=== PATIENT | male | born 1995 | race Caucasian/White ===

== ENCOUNTER 2016-05-17 14:40 | Observation (INO) | payer OTHER ==
[2016-05-17] MEDS ORDERED: NS 0.9% 1000 ML* 1,000 ML IV ONE (14:50)
[2016-05-17] MEDS ORDERED: Ondansetron INJ* 2 MG/ML VIAL ONE (15:06)
[2016-05-17] MEDS ORDERED: Ondansetron INJ* 2 MG/ML VIAL IV ONE ×2 (15:10→15:14)
--- NOTE | 2016-05-17 15:17 | ED ---
Abdominal Pain/Male - HPI Summary HPI Summary: Patient presents for 2 day evaluation of R lower abdominal pain with associated nausea. PMH sig for malrotation, appendectomy, bilateral inguinal herniorraphy. Denies systemic symptoms, trauma, penile or testicular pain. - History of Current Complaint Chief Complaint: EDAbdPain Stated Complaint: RLQ ABD PAIN Time Seen by Provider: 05/17/16 14:41 Hx Obtained From: Patient Onset/Duration: Gradual Onset Timing: Lasting Days Pain Intensity: 6 - Allergies/Home Medications Allergies/Adverse Reactions: Allergies Allergy/AdvReac Type Severity Reaction Status Date / Time No Known Allergies Allergy Verified 02/17/16 13:05 PMH/Surg Hx/FS Hx/Imm Hx Previously Healthy: Yes Endocrine/Hematology History: Denies: Hx Diabetes Cardiovascular History: Denies: Hx Hypertension, Hx Pacemaker/ICD History: Denies: Hx Renal Disease Sensory History: Denies: Hx Hearing Aid Psychiatric History: Denies: Hx Panic Disorder - Surgical History Surgery Procedure, Year, and Place: 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 Negative: Diarrhea Genitourinary: Negative Negative: no symptoms reported, burning, dysuria All Other Systems Reviewed And Are Negative: Yes Physical Exam Triage Information Reviewed: Yes Vital Signs On Initial Exam: Initial Vitals Temp Pulse Resp BP Pulse Ox 98.8 F 100 16 153/73 100 05/17/16 14:58 05/17/16 14:58 05/17/16 14:58 05/17/16 14:58 05/17/16 14:58 Vital Signs Reviewed: Yes Appearance: Positive: Well-Appearing, No Pain Distress, Well-Nourished Skin: Positive: Warm, Skin Color Reflects Adequate Perfusion, Dry, Other - Well healed bilateral inguinal incisions. ENT: Positive: Normal ENT inspection, Hearing grossly normal, Pharynx normal Neck: Positive: Supple, Nontender, No Lymphadenopathy Respiratory/Lung Sounds: Positive: Clear to Auscultation, Breath Sounds Present Cardiovascular: Positive: Normal, RRR, Pulses are Symmetrical in both Upper and Lower Extremities Abdomen Description: Positive: Nontender, No Organomegaly, Soft Male Genital Exam: Positive: normal genitalia, no hernia. Negative: epididymal tenderness, erythema, hernia mass, lesions, scrotum tenderness (R), scrotum tenderness (L), testicular tenderness (R), testicular tenderness (L), urethral discharge Musculoskeletal: Positive: Normal, Strength/ROM Intact Neurological: Positive: Normal, Sensory/Motor Intact, Alert, Oriented to Person Place, Time, CN Intact II-III, Reflexes Intact, Normal Gait Diagnostics - Vital Signs Vital Signs Temp Pulse Resp BP Pulse Ox 05/17/16 14:58 98.8 F 100 16 153/73 100 - Laboratory Result Diagrams: 05/17/16 15:20 05/17/16 15:20 Lab Statement: Any lab studies that have been ordered have been reviewed, and results considered in the medical decision making process. Abdominal Pain Fem Course/Dx - Diagnoses Differential Diagnosis/HQI/PQRI: Pancreatitis, Urinary Tract Infection, Other - Unclear if this is stump appendicits, epiploic appendigitis, mesenteric adenitis with preceding URi. CT for cause. Provider Diagnoses: Dehydration Discharge - Discharge Plan Condition: Stable Disposition: ADMITTED TO [facility]
[2016-05-17 15:43] LABS: Hematocrit 44 % (42-52); Hemoglobin 14.8 g/dl (14.0-18.0); Mean Corpuscular HGB Conc 34 g/dl (31-36); Mean Corpuscular Hemoglobin 29 pg (27-31); Mean Corpuscular Volume 88 fL (80-94); Mean Platelet Volume 9 um3 (7.4-10.4); Red Blood Count 5.03 10^6/ul (4.0-5.4); Red Cell Distribution Width 13 % (10.5-15); White Blood Count 12.3 10^3/ul (3.5-10.8)
[2016-05-17 16:11] LABS: Albumin 4.2 g/dL (3.2-5.2); BUN/Creatinine Ratio 14.7 (8-20); Calcium 9.2 mg/dL (8.6-10.3); EGFR African American 110.9 (>60); EGFR Non-African American 86.2 (>60); Globulin 2.7 g/dL (2-4); Potassium 4.1 mmol/L (3.5-5.0); Total Bilirubin 0.7 mg/dL (0.2-1.0); Total Protein 6.9 g/dL (6.4-8.9)
[2016-05-17] MEDS ORDERED: Iohexol 300* (CONTRAST) 10 ML SDV IV ONE (16:32)
--- NOTE | 2016-05-17 17:18 | RAD ---
INDICATION: Right lower quadrant pain. History of recurrent pain. History of malrotation. COMPARISON: MRI pelvis February 18, 2016; CT abdomen pelvis February 10, 2015 TECHNIQUE: Axial source images were obtained from the hemidiaphragms to the symphysis pubis following administration of oral and intravenous contrast. 123 mL Omnipaque 300 was utilized. Coronal and sagittal reconstructed images were acquired. Lung bases: The lung bases are clear. Liver: The liver is normal in size. There are no masses. There is no ductal dilatation. Gallbladder: There are no calcified gallstones. There is no evidence of wall thickening or pericholecystic fluid. Spleen: The spleen is normal in size. There are no masses. Pancreas: There is no focal pancreatic mass or ductal dilatation. Adrenal glands: There is no evidence of adrenal mass. Kidneys: The kidneys are normal in size and position. There are prompt nephrograms and there is prompt excretion bilaterally. There are no renal parenchymal masses. There is no evidence of nephrolithiasis. Adenopathy: There is no evidence of adenopathy by size criteria. Fluid collections: There are no free or localized fluid collections. Vessels:There are no significant atherosclerotic changes involving the aorta. There is no focal aneurysm. The iliac vessels are normal in caliber. The IVC appears normal. GI tract: In the anterior lower abdomen and pelvis along the midline are several mildly prominent loops of small bowel. There may be mild mucosal thickening perhaps related to an enteritis. There is no obstruction. There is a known malrotation. The small bowel is predominantly in the right abdomen and the colon is in the left abdomen with the cecum in the region of left mid abdomen. The appendix is not visualized. Pelvic organs: The prostate and seminal vesicles appear normal Bladder: There are no bladder masses. Abdominal and pelvic soft tissues: The extraperitoneal abdominal and pelvic soft tissues appear normal.. Osseous structures: There are no acute osseous findings. Other: None IMPRESSION: BOWEL MALROTATION. APPARENT MILD BOWEL WALL THICKENING OF SEVERAL SMALL BOWEL LOOPS IN THE ANTERIOR LOWER ABDOMEN AND PELVIS MAY BE RELATED TO MILD ENTERITIS. NONVISUALIZATION OF THE APPENDIX.
[2016-05-17] MEDS ORDERED: Ondansetron INJ* 2 MG/ML VIAL IV PRN (20:34)
[2016-05-17] MEDS ORDERED: Acetaminophen TAB* 325 MG PO PRN (20:37)
[2016-05-17] MEDS ORDERED: Acetaminophen TAB* 325 MG ONE (20:57)
[2016-05-17] MEDS: NS 0.9% 1000 ML* 1,000 ML IV SCH (22:30)
[2016-05-17] MEDS: Amoxicillin/Clavulanate TAB* 875 MG PO SCH (22:34)
[2016-05-17] MEDS: Heparin VIAL(*) 5000 UNITS/ML VIAL (FIVE THOUSAND) SUBCUT SCH ×2 (22:36→23:00)
--- NOTE | 2016-05-17 23:12 | HP ---
HISTORY AND PHYSICAL: DATE OF ADMISSION: 05/17/16 PROVIDER: Dr. Samaniego. PRIMARY CARE PROVIDER: Dr. Harrington ATTENDING PHYSICIAN: Jonathan Macias MD *(dictation provided by Alondra Jarquin NP) CHIEF COMPLAINT: Right lower quadrant abdominal pain and nausea. HISTORY OF PRESENT ILLNESS: Mr. Kwok is a 20-year-old male with a past medical history significant for double hernia repair in March 2016 as well as a history of surgery for correction of malrotation of the colon as a child and appendectomy, who presents today to the hospital with concern for nausea, dry heaves, and primarily right lower quadrant abdominal pain. The patient states that he began feeling poorly about 3 days ago. He has had some oral intake, but has had some nausea with dry heaves. He has not had a bowel movement. Today, he had a temperature to 99.5 and had some chills. He was evaluated at [facility] and was sent over to the emergency room. Other than these complaints, the patient states that he has had stuffy nose with significant mucus production over the past 3 weeks with strong concern for sinus infection based on history of similar. In the emergency room, Mr. Kwok had a white blood cell count that was 12.3. His electrolytes were normal. His flu swab was negative. He did go on for an abdomen pelvis CT, which was read as follows "bowel malrotation, apparent mild bowel wall thickening of several small bowel loops in the anterior lower abdomen and pelvis may be related to mild enteritis, nonvisualization of the appendix." The patient is feeling somewhat better already with IV fluids. He was seen in consultation by Dr. Glasgow from Surgery who felt there is no indication for surgical intervention but recommended observation overnight given his past medical history. Based on Mr. Kwok's presentation with suspected gastroenteritis, Hospital Medicine was called regarding admission. PAST MEDICAL HISTORY: 1. History of double hernia repair in March 2016. 2. History of malrotation of the colon, status post surgical repair as a child. 3. Appendectomy. MEDICATIONS: 1. Adderall p.r.n. 2. Ibuprofen p.r.n. ALLERGIES: No known drug allergies. FAMILY HISTORY: The patient is unaware of any history of other than to say that there is some cancer. He is not sure what type it is. SOCIAL HISTORY: No report of tobacco or drug use. The patient drinks alcohol occasionally. His healthcare proxy is his mother. REVIEW OF SYSTEMS: A 14-point review of systems was completed with Mr. Kwok and all those not mentioned above were negative. PHYSICAL EXAMINATION GENERAL: Mr. Kwok is lying in the bed. He is in no acute distress. He is calm and cooperative with my examination. VITAL SIGNS: Temperature 98.8, pulse rate 100, respiratory rate 16, O2 saturation 100% on room air, blood pressure 153/73. LUNGS: Clear to auscultation bilaterally with no accessory muscle use and good aeration. ABDOMEN: Soft. There is tenderness in the left lower quadrant to palpation. Bowel sounds are positive. EXTREMITIES: No cyanosis or edema. SKIN: Intact. NEUROLOGIC: He is alert and oriented x3. He moves all extremities equally. There is no facial asymmetry or focal weakness. Extraocular movements are intact. DIAGNOSTIC STUDIES/LAB DATA: WBC 12.3, hemoglobin 14.8, hematocrit 44, platelet count 191. Sodium 135, potassium 4.1, chloride 104, serum bicarbonate 27, BUN 16, creatinine 1.09, glucose 100. Flu swab is negative. CT abdomen and pelvis is as read above. ASSESSMENT: Mr. Kwok is a 20-year-old male with a past medical history of malrotation of the colon, status post surgical intervention, appendectomy, double hernia repair in March 2016, who presents to the hospital with concern for left lower quadrant abdominal pain, nausea, and dry heaves and he has been noted to have some mild bowel thickening on the CT scan. Our plans are for observation in the hospital for the followin. Gastroenteritis. Overall, the patient's clinical picture is consistent with gastroenteritis. He has been seen in consultation by Surgical Services who did not find any abnormality concerning for need for surgical intervention. Plan to provide symptomatic relief with intravenous fluids, Zofran, and Tylenol. We will recheck his labs in the morning. We will perform serial abdominal exams. 2. Sinus infection. The patient is requesting antibiotics for 3 weeks of sinus infection symptoms. I have ordered Augmentin 875 b.i.d. 3. DVT prophylaxis with early mobility. 4. Disposition to medical floor. TIME SPENT: Approximately 60 minutes were spent on the admission of this patient, more than half of the time was spent with him at the bedside reviewing the events leading up to this hospitalization, performing the physical examination, and reviewing my plan of care. ALONDRA JARQUIN NP CC: Shannan Samaniego MD; Dr. Harrington* [id number]/[facility] #: [id number] MTDD
--- NOTE | 2016-05-18 00:09 | CONS ---
CONSULTATION REPORT: DATE OF CONSULT: 05/17/16 LOCATION: This patient was seen in consultation in the emergency room on the date above. REFERRING PROVIDER: Mode Nguyen MD REASON FOR CONSULT: Generalized abdominal pain, nausea, and vomiting with a small amount of diarrhea. HISTORY OF PRESENT ILLNESS: Mr. 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 More recently on Tuesday, he developed a generalized abdominal pain/stomach ache associated with nausea and vomiting with subsequent dry heaves. He had small amounts of diarrhea, but he has been passing flatus. The pain persisted. He is able to keep some liquids down, but had poor intake yesterday. As far as he knows, he has had a low-grade fever but no fever, shakes, or chills. He has had no difficulty urinating. He was seen at the [facility] today and referred to the emergency room here at [facility] for further care. The patient's surgical history is remarkable for having being born with an intestinal malrotation which was surgically repaired at 10 days of age through a transverse upper midline incision. An appendectomy was done at that time and he has not had problems since then, although he did have some abdominal pain about a year ago and a CT scan was unremarkable other than showing some malrotation. Here in the emergency room today, he was noted to have white blood cell count of 12,300. Electrolytes, BUN, creatinine, liver transaminases, and lipase were all within normal limits. He underwent a CT scan of the abdomen and pelvis. I did review these images. This showed bowel malrotation, but no evidence of bowel distention, volvulus, free fluid, or free air. There was some mild small bowel wall thickening, several small bowel loops, worrisome for possible mild enteritis. No evidence of inflammation was otherwise noted. Surgical consultation was obtained. PAST MEDICAL HISTORY: ADD. PAST SURGICAL HISTORY: 1. Bilateral inguinal hernia repair for sports hernias. 2. Laparotomy for intestinal malrotation at 10 days of age as per above. MEDICATIONS: 1. Ibuprofen p.r.n. 2. Adderall 10 mg p.o. every other day which he has not taken for a week. ALLERGIES: He has no known drug allergies. 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 He does not smoke or drink alcohol. He lives off campus. REVIEW OF SYSTEMS: Otherwise as per above and unremarkable. PHYSICAL EXAM: 98.8, pulse 100, blood pressure 153/73. In general, a well- developed, well-nourished male who appears to be in no apparent distress. Awake , alert, and conversive. HEENT: His sclerae are anicteric. Oral mucosa is somewhat dry. Trachea was midline. There was no cervical adenopathy. Lungs were clear to auscultation with normal respiratory effort. Heart: Regular rate and rhythm without murmurs, rubs, or gallops. His abdomen was soft and nondistended. He has hyperactive bowel sounds throughout, which are not high pitched or tinkling. He has a well-healed transverse incision above the umbilicus without hernia. He has well-healed bilateral inguinal hernia incisions. He has some mild tenderness but is soft throughout the abdomen without rebound, guarding, rigidity, or peritoneal signs. Psychiatric: He is awake, alert, and oriented x3. He has normal judgment and insight. IMPRESSION: Abdominal pain with nausea and vomiting and small amounts of diarrhea. The patient has had a fever and has mild white blood cell count. CT scan findings as above. I suspect that he most likely has an acute viral type of gastroenteritis and this is supported by his clinic history, physical exam, and the findings on the CT scan. I do not believe that the malrotation which really shows no evidence of obstruction and is unchanged from his study 1 or 2 years ago, is playing a role here, plus he has had this surgically pexed/repaired to prevent the midgut volvulus and I don't believe he would present with this type of picture. In addition, he has had some viral upper respiratory complaints. He also states that his roommates and teammates have had gastroenteritis-type picture over the past several weeks. At this point, I do not believe there is any surgical intervention necessary. PLAN: 1. The patient is going to be admitted to the hospitalist service for hydration and observation. 2. He can start taking p.o. as tolerated from the surgical standpoint. 3. I discussed all of the above with the patient's mother at [phone] and answered her questions and certainly will keep her abreast if there be any change in his condition especially that would require any surgical intervention. [id number]/[facility] #: [id number] TYRON
[2016-05-18 05:31] LABS: Hematocrit 42 % (42-52); Hemoglobin 14.2 g/dl (14.0-18.0); Mean Corpuscular HGB Conc 34 g/dl (31-36); Mean Corpuscular Hemoglobin 29 pg (27-31); Mean Corpuscular Volume 87 fL (80-94); Mean Platelet Volume 9 um3 (7.4-10.4); Red Blood Count 4.85 10^6/ul (4.0-5.4); Red Cell Distribution Width 13 % (10.5-15); White Blood Count 6.7 10^3/ul (3.5-10.8)
[2016-05-18] MEDS: NS 0.9% 1000 ML* 1,000 ML IV SCH (05:34)
[2016-05-18] MEDS: Heparin VIAL(*) 5000 UNITS/ML VIAL (FIVE THOUSAND) SUBCUT SCH (05:36)
[2016-05-18 05:54] LABS: Calcium 8.4 mg/dL (8.6-10.3); EGFR African American 101.2 (>60); EGFR Non-African American 78.7 (>60); Potassium 3.5 mmol/L (3.5-5.0)
[2016-05-18] MEDS: Amoxicillin/Clavulanate TAB* 875 MG PO SCH (08:54)
[2016-05-18 09:44] VITALS: BP 140/73
--- NOTE | 2016-05-18 10:37 | PN ---
Subjective Date of Service: 05/18/16 Interval History: Pt is feeling a little better today. He states that his abdominal pain is still present but quite a bit better. He had mild nausea this AM but was able to eat some eggs this AM. He has had 2 liquid BMs this AM. Objective Active Medications: Acetaminophen (Tylenol Tab*) 650 mg PO Q6H PRN PRN Reason: pain/fever Last Admin: 05/17/16 20:58 Dose: 650 mg Amoxicillin/Clavulanate Potassium (Augmentin Tab*) 875 mg PO BID [facility] Last Admin: 05/18/16 08:54 Dose: 875 mg Heparin Sodium (Porcine) (Heparin Vial(*)) 5,000 units SUBCUT Q8HR [facility] Last Admin: 05/18/16 05:36 Dose: 5,000 units Sodium Chloride (Ns 0.9% 1000 Ml*) 1,000 mls @ 150 mls/hr IV PER RATE [facility] Last Admin: 05/18/16 05:34 Dose: 150 mls/hr Ondansetron HCl (Zofran Inj*) 4 mg IV Q6H PRN PRN Reason: NAUSEA Last Admin: 05/17/16 22:35 Dose: 4 mg Vital Signs 05/17/16 05/17/16 05/18/16 21:55 23:38 03:23 Temperature 98.5 F 98.9 F 99.3 F Pulse Rate 85 85 86 Respiratory 16 16 16 Rate Blood Pressure 140/64 134/78 134/64 (mmHg) O2 Sat by Pulse 96 97 98 Oximetry 05/18/16 05/18/16 07:14 08:00 Temperature 99.0 F Pulse Rate 76 Respiratory 16 16 Rate Blood Pressure 140/73 (mmHg) O2 Sat by Pulse 98 Oximetry Oxygen Devices in Use Now: None Appearance: Young male lying in bed, NAD Eyes: No Scleral Icterus Ears/Nose/Mouth/Throat: Mucous Membranes Moist Respiratory: Symmetrical Chest Expansion and Respiratory Effort, Clear to Auscultation Cardiovascular: NL Sounds; No Murmurs; No JVD, RRR, No Edema Abdominal: - - BS+ soft, ND, mildly tender to palpation in RLQ Extremities: No Clubbing, Cyanosis Skin: No Rash or Ulcers, No Nodules or Sclerosis Neurological: Alert and Oriented x 3 Result Diagrams: 05/18/16 04:52 05/18/16 04:52 Assess/Plan/Problems-Billing Mr Kwok is a 20 yo M who has a h/o malrotation of the gut repaired as a child who presented to the ER with c/o nausea, vomiting, diarrhea and abdominal pain and was admitted for presumed viral gastroenteritis. - Patient Problems (1) Viral gastroenteritis Current Visit: Yes Status: Acute Code(s): A08.4 - VIRAL INTESTINAL INFECTION , UNSPECIFIED SNOMED Code(s): 848326784 Comment: Pt is feeling a little better. Likely viral gastroenteritis. He thinks he will be able to manage at home. Will plan on d/c home this afternoon after lunch if he tolerates it ok. (2) DVT prophylaxis Current Visit: Yes Status: Acute Code(s): FPO6124 - SNOMED Code(s): 135865572 Comment: ambulation (3) Full code status Current Visit: Yes Status: Acute Code(s): Z78.9 - OTHER SPECIFIED HEALTH STATUS SNOMED Code(s): 308595943
--- NOTE | 2016-05-19 22:12 | DS ---
DISCHARGE SUMMARY: DATE OF ADMISSION: 05/17/16 DATE OF DISCHARGE: 05/18/16 PRIMARY CARE PROVIDER: [facility]. PRINCIPAL DIAGNOSIS: Viral gastroenteritis. SECONDARY DIAGNOSIS: History of malrotation of the gut, status post surgical repair as a child. DISCHARGE MEDICATIONS: 1. Adderall 45 mg p.o. 3 times weekly. 2. Ibuprofen 200 mg p.o. q.6 hours p.r.n. pain. 3. Zofran ODT 4 mg p.o. q.6 hours p.r.n. nausea. 4. Augmentin 875 mg p.o. b.i.d. x12 more doses. HOSPITAL COURSE: Mr. Kwok is a 20-year-old male who presented to the emergency room on 05/17/16 with complaints of nausea, vomiting, and diarrhea. The patient states that he had been feeling poorly for 3 days prior to admission. He has had poor oral intake that has been associated with nausea and dry heaves. The patient was seen at [facility] and sent to the emergency room for evaluation. Additionally, the patient was complaining of sinusitis type symptoms. The patient was admitted for conservative management of a presumed viral gastroenteritis. The patient was seen in consultation by Dr. Glasgow from General Surgery due to concerns of malrotation on the CT scan of the abdomen and pelvis. The patient had malrotation as a child, but had this surgically repaired. Dr. Glasgow did not feel that the patient had any acute surgical needs. His abdominal pain by the time of discharge was improving. The patient additionally was able to eat some food without any worsening of his abdominal pain or nausea/vomiting. Overall, the patient is feeling improved; however, not completely not back to baseline. He does note that several of his classmates/team mates have been ill with similar symptoms, though their symptoms improved quicker than his has. At this point, it was felt that the patient's symptoms are most likely banking representative of a viral gastroenteritis. In terms of the sinusitis symptoms, the patient was given a prescription for Augmentin. He will need to follow up with the [facility] to ensure that his symptoms have resolved. FOLLOWUP CONCERNS: The patient is being discharged home today on 05/18/16. He is to follow up with the [facility] in the next 4 to 7 days. ACTIVITY: Activity level is as tolerated. DIET: Regular as tolerated. CONDITION ON DISCHARGE: Stable. TIME SPENT: 25 minutes were spent discharging this patient. CC: [facility]* [id number]/[facility] #: [id number] MTDD
== END 2016-05-18 14:40 | disposition home or self-care (01) ==
LOC: ED 14:40 → MEDTELE 21:12
PROVIDERS: ADMIT Hospitalist; ATTEND Hospitalist
DX: K52.9 Noninfective gastroenteritis and colitis, unspecified (principal); J32.9 Chronic sinusitis, unspecified
CPT/HCPCS: 36415; 74177; 80048; 80053; 83690; 85025; 87502; 96374; 96375; 99283; A9270-GY; G0378; J1644; J2405; Q9967